=== PATIENT | female | born 1995 | race Two or more races ===

== ENCOUNTER 2025-08-05 10:57 | Outpatient (CLI) | payer MEDICAID ==
[2025-08-05 12:24] LABS: Hematocrit 37.1 % (36.0-46.0); Hemoglobin 12.6 g/dL (12.2-16.2); Mean Corpuscular Hemoglobin 29.5 pg (28.0-32.0); Mean Corpuscular Volume 86.7 fL (80.0-100.0); Nucleated Red Blood Cells % 0.1 %
[2025-08-05 13:11] LABS: Free T4 (Free Thyroxine) 0.93 ng/dL (0.89-1.76)
[2025-08-05 13:13] LABS: Thyroid Stimulating Hormone 0.73 uIU/mL (0.55-4.78)
[2025-08-05 13:28] LABS: Amphetamine Screen, Urine Neg (NEGATIVE); Barbiturate Scree,Urine Neg (NEGATIVE); Benzodiazephine Screen, Urine Neg (NEGATIVE); Cannabinoid Screen, Urine Neg (NEGATIVE); Cocaine Screen, Urine Neg (NEGATIVE); Opiate Scree,Urine Neg (NEGATIVE); Phencyclidine Screen, Urine Neg (NEGATIVE)
[2025-08-05 13:37] LABS: Alanine Aminotransferase 26 U/L (7-40); Alkaline Phosphatase 53 U/L (46-116); Anion Gap 12 (5-15); Calcium 9.2 mg/dL (8.7-10.4); Carbon Dioxide 23 mmol/L (20-31); Chloride 104 mmol/L (98-107); Potassium 3.8 mmol/L (3.5-5.1); Sodium 139 mmol/L (136-145)
[2025-08-05 13:40] LABS: BUN/Creatinine Ratio 10.3 (10.0-20.0); Glucose 101 mg/dL (74-106); Total Protein 6.7 g/dL (5.7-8.2)
[2025-08-05 13:41] LABS: Albumin 3.9 g/dL (3.2-4.8)
[2025-08-05 13:42] LABS: Bilirubin, Total 0.3 mg/dL (0.2-1.0)
[2025-08-05 13:43] LABS: Blood Urea Nitrogen 6 mg/dL (9-23)
[2025-08-07 03:07] LABS: Chlamydia Trachomatis, NAA Negative (Negative); Neisseria gonorrhoeae, NAA Negative (Negative)
== END 2025-08-05 17:00 | disposition home or self-care (01) ==
LOC: LAB 10:57
PROVIDERS: ATTEND Obstetrics & Gynecology
DX: O99.280 Endocrine, nutritional and metabolic diseases complicating pregnancy, unspecified trimester (principal); O23.40 Unspecified infection of urinary tract in pregnancy, unspecified trimester; E28.2 Polycystic ovarian syndrome; N39.0 Urinary tract infection, site not specified; Z20.01 Contact with and (suspected) exposure to intestinal infectious diseases due to Escherichia coli (E. coli); Z11.3 Encounter for screening for infections with a predominantly sexual mode of transmission; Z31.430 Encounter of female for testing for genetic disease carrier status for procreative management; Z3A.00 Weeks of gestation of pregnancy not specified
CPT/HCPCS: 36415; 80053; 80307; 83036; 84144; 84439; 84443; 84702; 85025; 86703; 86762; 86780; 86787; 86850; 86900; 86901; 87086; 87340